=== PATIENT | male | born 1990 | race African-American/Black ===

== ENCOUNTER 2018-04-22 16:04 | Emergency (ER) | payer OTHER ==
[2018-04-22] MEDS ORDERED: Acetaminophen 500 MG TAB ONE (16:18)
[2018-04-22] MEDS ORDERED: Ketorolac Tromethamine 60 MG/2 ML VIAL ONE (16:18)
--- NOTE | 2018-04-22 17:02 | CT ---
LUMBAR SPINE CT SCAN WITHOUT IV CONTRAST: 04/22/18 HISTORY: Back pain following injury from a fall and trauma. There is some fragmentation of the inferior facet of L3 on the left side which appears to be either a n old injury or developmental area of secondary ossification center. This is not the appearance of an y type of acute fracture. IMPRESSION: No evidence for acute fracture or dislocation. Probable developmental or old traumatic area involving the inferior left L3 facet most likely a developmental process. No evidence for acute fracture or d islocation. No significant spinal canal stenosis. POS: [facility]
== END 2018-04-22 17:18 | disposition home or self-care (01) ==
LOC: BURERS 16:04
DX: M54.5 Low back pain (principal)
CPT/HCPCS: 72131; 96372; J1885